=== PATIENT | male | born 1940 | race African-American/Black ===

== ENCOUNTER 2022-12-30 20:53 | Inpatient (IN) | payer MEDICARE ==
[2022-12-30 21:56] LABS: Actual Bicarbonate (HCO3v) 25 mEq/L (22-28); Analyzer IN Cardio ER; Base Excess -0.5 mEq/L (-2.0 to +3.0); Calcium, Ionized (venous) 1.22 mmol/L (1.16-1.32); Chloride (VBG) 115 mmol/L (98-106); Potassium (VBG) 4.33 mmol/L (3.70-5.30); pH (venous) 7.37 (7.32-7.43)
[2022-12-30 22:00] LABS: #Lymphocytes 1.9 thou/uL (1.20-3.40); #Monocytes 1.2 thou/uL (0.11-0.59); %Basophils 0.2 % (0.0-1.0); %Eosinophils 0.3 % (0.0-10.0); %Lymphocytes 13.6 % (21.0-51.0); %Monocytes 8.6 % (0.0-10.0); %Neutrophils 77.3 % (42.0-75.0); Hemoglobin 16.2 g/dL (14.0-18.0); Mean Corpuscular HGB CONC 33.1 g/dL (32.0-36.0); Mean Corpuscular Hemoglobin 27.1 pg (27.0-31.0); Mean Platelet Volume 8.9 fL (7.4-10.4); Platelet Count 296 10x3/uL (130-400); RBC Distribution Width 14.4 % (11.5-14.5); Red Blood Cell (RBC) Count 5.96 mill/uL (4.70-6.10); White Blood Cell (WBC) Count 14.2 10x3/uL (4.8-10.8)
[2022-12-30 22:17] LABS: SARS-CoV-2 NAA Rapid Test Not Detected (NotDetected)
[2022-12-30 22:22] LABS: ALT (SGPT) 25 U/L (8-55); AST (SGOT) 27 U/L (5-34); Albumin 4.3 g/dL (3.4-4.8); Alkaline Phosphatase 81 U/L (40-110); Anion Gap 19 mmol/L (10-20); BUN (Urea Nitrogen) 43 mg/dL (8.4-25.7); Bilirubin, Total 0.5 mg/dL (0.2-1.2); Calc. Creatinine Clearance 0 mL/min (70-130); Calcium 10.1 mg/dL (7.8-10.44); Carbon Dioxide 23 mmol/L (23-31); Chloride 115 mmol/L (98-107); Estimated GFR 25; Globulin 3.6 g/dL (2.4-3.5); Potassium 3.9 mmol/L (3.5-5.1); Protein, Total 7.9 g/dL (5.8-8.1)
[2022-12-30 22:24] LABS: Glucose 442 mg/dL (83-110); Sodium 153 mmol/L (136-145)
[2022-12-30 22:43] LABS: CKMB 6.3 ng/mL (0-6.6)
[2022-12-30] MEDS ORDERED: NS 0.9% w/ 20 MEQ KCL 1,000 ML ONE (22:46)
[2022-12-30] MEDS ORDERED: Sodium Chloride 0.9% 1,000 ML IV PRN ×2 (23:11)
[2022-12-30] MEDS ORDERED: D5 1/2 NS w/20 mEq KCL 1,000 ML IV PRN (23:11)
[2022-12-30] MEDS ORDERED: Dextrose 50% Abboject 50 ML SYRINGE SLOW IVP PRN (23:11)
[2022-12-30] MEDS ORDERED: NS 0.9% w/ 20 MEQ KCL 1,000 ML IV PRN ×2 (23:11)
[2022-12-30] MEDS ORDERED: Dextrose 5 %-0.45 % NaCl 1,000 ML IV PRN (23:11)
[2022-12-30] MEDS ORDERED: Electrolyte Replacement Protocol 1 EACH IVPB PRN (23:11)
[2022-12-30] MEDS ORDERED: Ondansetron PF 4 MG/2 ML Vial IVP PRN (23:13)
[2022-12-30] MEDS ORDERED: Acetaminophen 650 MG Suppository PR PRN (23:13)
[2022-12-30] MEDS ORDERED: Acetaminophen 325 MG TAB PO PRN (23:13)
[2022-12-30] MEDS ORDERED: Ondansetron ODT 4 MG TAB PO PRN (23:13)
[2022-12-30] MEDS ORDERED: HUMULIN R 100 UNITS in Sodium Chloride 0.9% 100 ML IVPB SCH (23:15)
[2022-12-31 00:24] VITALS: BMI 23.3
[2022-12-31 01:53] LABS: Anion Gap 18 mmol/L (10-20); BUN (Urea Nitrogen) 38 mg/dL (8.4-25.7); Calc. Creatinine Clearance 27 mL/min (70-130); Calcium 9.7 mg/dL (7.8-10.44); Carbon Dioxide 23 mmol/L (23-31); Chloride 123 mmol/L (98-107); Estimated GFR 31; Glucose 176 mg/dL (83-110); Potassium 4.1 mmol/L (3.5-5.1)
[2022-12-31 01:57] LABS: Sodium 160 mmol/L (136-145)
[2022-12-31 02:00] LABS: Troponin I 0.088 ng/mL (< 0.028)
[2022-12-31] MEDS ORDERED: Dextrose 5% w/ 20 mEq KCl 1,000 ML IV SCH (02:30)
[2022-12-31 04:29] LABS: #Basophils 0.1 thou/uL (0.0-0.2); #Lymphocytes 2.2 thou/uL (1.20-3.40); #Monocytes 1.6 thou/uL (0.11-0.59); #Neutrophils 11.2 thou/uL (1.40-6.50); %Basophils 0.4 % (0.0-1.0); %Eosinophils 0.2 % (0.0-10.0); %Lymphocytes 14.5 % (21.0-51.0); %Monocytes 10.3 % (0.0-10.0); %Neutrophils 74.6 % (42.0-75.0); Hemoglobin 15.5 g/dL (14.0-18.0); Mean Corpuscular HGB CONC 32.5 g/dL (32.0-36.0); Mean Corpuscular Hemoglobin 26.8 pg (27.0-31.0); Mean Corpuscular Volume 82.6 fl (78.0-98.0); Mean Platelet Volume 9.1 fL (7.4-10.4); Platelet Count 247 10x3/uL (130-400); RBC Distribution Width 14.5 % (11.5-14.5); Red Blood Cell (RBC) Count 5.79 mill/uL (4.70-6.10); White Blood Cell (WBC) Count 15.1 10x3/uL (4.8-10.8)
[2022-12-31 04:48] LABS: Troponin I 0.092 ng/mL (< 0.028)
[2022-12-31 04:50] LABS: Anion Gap 15 mmol/L (10-20); BUN (Urea Nitrogen) 34 mg/dL (8.4-25.7); Calc. Creatinine Clearance 33 mL/min (70-130); Calcium 9.7 mg/dL (7.8-10.44); Carbon Dioxide 22 mmol/L (23-31); Chloride 125 mmol/L (98-107); Estimated GFR 40; Glucose 101 mg/dL (83-110); Potassium 4.2 mmol/L (3.5-5.1)
[2022-12-31 04:55] LABS: Sodium 158 mmol/L (136-145)
[2022-12-31 07:03] LABS: Anion Gap 19 mmol/L (10-20); BUN (Urea Nitrogen) 32 mg/dL (8.4-25.7); Calc. Creatinine Clearance 32 mL/min (70-130); Calcium 9.1 mg/dL (7.8-10.44); Carbon Dioxide 16 mmol/L (23-31); Chloride 126 mmol/L (98-107); Estimated GFR 38; Glucose 205 mg/dL (83-110); Potassium 4.5 mmol/L (3.5-5.1)
[2022-12-31 07:16] LABS: Sodium 156 mmol/L (136-145)
[2022-12-31] MEDS ORDERED: Dextrose 50% Abboject 50 ML SYRINGE IVP PRN (09:30)
[2022-12-31] MEDS ORDERED: Dextrose 5% in Water 1,000 ML IV PRN ×2 (09:30→15:48)
[2022-12-31] MEDS: Sodium Chloride 0.45% 1,000 ML IV SCH ×2 (09:37→17:54)
[2022-12-31 10:05] LABS: Anion Gap 16 mmol/L (10-20); BUN (Urea Nitrogen) 30 mg/dL (8.4-25.7); Calc. Creatinine Clearance 34 mL/min (70-130); Calcium 9.6 mg/dL (7.8-10.44); Carbon Dioxide 21 mmol/L (23-31); Chloride 123 mmol/L (98-107); Estimated GFR 42; Glucose 204 mg/dL (83-110); Potassium 4.1 mmol/L (3.5-5.1)
[2022-12-31 10:27] LABS: Sodium 156 mmol/L (136-145)
[2022-12-31 14:29] LABS: Anion Gap 16 mmol/L (10-20); BUN (Urea Nitrogen) 27 mg/dL (8.4-25.7); Calc. Creatinine Clearance 38 mL/min (70-130); Calcium 9.2 mg/dL (7.8-10.44); Carbon Dioxide 20 mmol/L (23-31); Chloride 123 mmol/L (98-107); Estimated GFR 47; Glucose 187 mg/dL (83-110); Potassium 4.3 mmol/L (3.5-5.1)
[2022-12-31 14:48] LABS: Sodium 155 mmol/L (136-145)
[2022-12-31 16:28] LABS: Sodium 157.3 mmol/L (133-146)
[2022-12-31] MEDS: HumaLOG 300 UNITS/3 ML VIAL SC PRN (17:54)
[2022-12-31 19:50] LABS: Bilirubin Negative (Negative); Blood, Urine 3+ (Negative); Clarity Clear (Clear); Glucose, Urine (Dipstick) Greater than 1000 mg/dL (Negative); Ketone, Urine 10 mg/dL (Negative); Leukocyte Negative Leu/uL (Negative); Nitrite Negative (Negative); Protein, Urine (Dipstick) 20 mg/dL (Neg-Trace); RBC/HPF 0-3 HPF (0-3); Specific Gravity, Urine 1.014 (1.002-1.036); Squamous Epithelial 0-3 HPF (0-3); Urobilinogen Normal mg/dL (Less than 2); WBC/HPF 0-3 HPF (0-3)
[2022-12-31 19:51] LABS: Bacteria/HPF 1+ HPF (None Seen)
[2022-12-31] MEDS ORDERED: Insulin Glargine 30 UNITS/0.3 ML VIAL SC SCH (21:00)
[2022-12-31] MEDS: Atorvastatin Calcium 20 MG TAB PO SCH (21:20)
[2023-01-01] MEDS: Sodium Chloride 0.45% 1,000 ML IV SCH ×3 (00:58→17:15)
[2023-01-01] MEDS: HumaLOG 300 UNITS/3 ML VIAL SC PRN ×3 (07:30→17:14)
[2023-01-01] MEDS ORDERED: Glimepiride 1 MG TAB PO SCH (08:00)
[2023-01-01 09:04] LABS: #Basophils 0.1 thou/uL (0.0-0.2); #Lymphocytes 2.4 thou/uL (1.20-3.40); #Monocytes 0.6 thou/uL (0.11-0.59); #Neutrophils 8.3 thou/uL (1.40-6.50); %Basophils 0.6 % (0.0-1.0); %Eosinophils 0.3 % (0.0-10.0); %Lymphocytes 20.9 % (21.0-51.0); %Monocytes 5.3 % (0.0-10.0); Hemoglobin 15.9 g/dL (14.0-18.0); Mean Corpuscular HGB CONC 31.5 g/dL (32.0-36.0); Mean Corpuscular Hemoglobin 26.6 pg (27.0-31.0); Mean Corpuscular Volume 84.5 fl (78.0-98.0); Platelet Count 225 10x3/uL (130-400); RBC Distribution Width 14.7 % (11.5-14.5); Red Blood Cell (RBC) Count 5.96 mill/uL (4.70-6.10); White Blood Cell (WBC) Count 11.4 10x3/uL (4.8-10.8)
[2023-01-01 09:19] LABS: Anion Gap 18 mmol/L (10-20); BUN (Urea Nitrogen) 22 mg/dL (8.4-25.7); Calc. Creatinine Clearance 40 mL/min (70-130); Calcium 8.7 mg/dL (7.8-10.44); Carbon Dioxide 17 mmol/L (23-31); Chloride 118 mmol/L (98-107); Estimated GFR 52; Glucose 266 mg/dL (83-110); Potassium 3.9 mmol/L (3.5-5.1); Sodium 149 mmol/L (136-145)
[2023-01-01 09:23] LABS: ALT (SGPT) 44 U/L (8-55); AST (SGOT) 84 U/L (5-34); Albumin 3.2 g/dL (3.4-4.8); Alkaline Phosphatase 65 U/L (40-110); Anion Gap 19 mmol/L (10-20); BUN (Urea Nitrogen) 21 mg/dL (8.4-25.7); Bilirubin, Total 0.8 mg/dL (0.2-1.2); Calc. Creatinine Clearance 40 mL/min (70-130); Calcium 9.1 mg/dL (7.8-10.44); Carbon Dioxide 16 mmol/L (23-31); Chloride 118 mmol/L (98-107); Estimated GFR 52; Globulin 3.3 g/dL (2.4-3.5); Glucose 265 mg/dL (83-110); Potassium 3.8 mmol/L (3.5-5.1); Protein, Total 6.5 g/dL (5.8-8.1); Sodium 149 mmol/L (136-145)
[2023-01-01] MEDS: Insulin Glargine 30 UNITS/0.3 ML VIAL SC SCH ×2 (10:00→21:05)
[2023-01-01] MEDS: Amlodipine 10 MG TAB PO SCH (10:00)
[2023-01-01] MEDS: Aspirin Chewable 81 MG TAB PO SCH (10:00)
[2023-01-01] MEDS: Atorvastatin Calcium 20 MG TAB PO SCH (21:04)
[2023-01-02] MEDS: Sodium Chloride 0.45% 1,000 ML IV SCH ×2 (01:17→08:34)
[2023-01-02 06:24] LABS: #Eosinphils 0.1 thou/uL (0.0-0.7); #Lymphocytes 2.3 thou/uL (1.20-3.40); #Monocytes 0.8 thou/uL (0.11-0.59); #Neutrophils 3.8 thou/uL (1.40-6.50); %Basophils 0.7 % (0.0-1.0); %Eosinophils 0.8 % (0.0-10.0); %Lymphocytes 33.6 % (21.0-51.0); %Monocytes 10.7 % (0.0-10.0); %Neutrophils 54.2 % (42.0-75.0); Hemoglobin 15.3 g/dL (14.0-18.0); Mean Corpuscular HGB CONC 32.6 g/dL (32.0-36.0); Mean Corpuscular Hemoglobin 27.2 pg (27.0-31.0); Mean Corpuscular Volume 83.4 fl (78.0-98.0); Platelet Count 167 10x3/uL (130-400); RBC Distribution Width 14.2 % (11.5-14.5); Red Blood Cell (RBC) Count 5.62 mill/uL (4.70-6.10)
[2023-01-02] MEDS: HumaLOG 300 UNITS/3 ML VIAL SC PRN ×2 (06:54→12:24)
[2023-01-02 07:00] LABS: ALT (SGPT) 36 U/L (8-55); AST (SGOT) 56 U/L (5-34); Albumin 2.8 g/dL (3.4-4.8); Alkaline Phosphatase 59 U/L (40-110); Anion Gap 13 mmol/L (10-20); BUN (Urea Nitrogen) 15 mg/dL (8.4-25.7); Bilirubin, Total 0.8 mg/dL (0.2-1.2); Calc. Creatinine Clearance 54 mL/min (70-130); Calcium 8.5 mg/dL (7.8-10.44); Carbon Dioxide 20 mmol/L (23-31); Chloride 114 mmol/L (98-107); Estimated GFR 73; Globulin 2.8 g/dL (2.4-3.5); Glucose 154 mg/dL (83-110); Potassium 3.5 mmol/L (3.5-5.1); Protein, Total 5.6 g/dL (5.8-8.1); Sodium 143 mmol/L (136-145)
[2023-01-02] MEDS ORDERED: Glimepiride 4 MG TAB PO SCH (07:30)
[2023-01-02] MEDS ORDERED: Potassium Chloride 20 MEQ TAB PO SCH (08:00)
[2023-01-02] MEDS: Aspirin Chewable 81 MG TAB PO SCH (08:33)
[2023-01-02] MEDS: Insulin Glargine 30 UNITS/0.3 ML VIAL SC SCH (08:33)
[2023-01-02] MEDS: Amlodipine 10 MG TAB PO SCH (08:34)
[2023-01-02 11:43] VITALS: BP 157/87; TEMP 98.6
== END 2023-01-02 15:00 | disposition home health service (06) | DRG 638 ==
LOC: ERS 20:53 → IMCU/EMU 22:19 → SJJU 12-31 22:42
PROVIDERS: ADMIT Student in an Organized Health Care Education/Training Program; ATTEND Internal Medicine
DX: E11.10 Type 2 diabetes mellitus with ketoacidosis without coma (principal); E87.0 Hyperosmolality and hypernatremia; N17.9 Acute kidney failure, unspecified; E78.5 Hyperlipidemia, unspecified; E78.00 Pure hypercholesterolemia, unspecified; E86.0 Dehydration; N18.30 Chronic kidney disease, stage 3 unspecified; D63.1 Anemia in chronic kidney disease; Z20.822 Contact with and (suspected) exposure to COVID-19; Z79.4 Long term (current) use of insulin; Z79.82 Long term (current) use of aspirin; Z79.899 Other long term (current) drug therapy
CPT/HCPCS: 36415; 36416; 80048; 80053; 81001; 82553; 82805; 84484; 85025; 93005; 96365; 96366; J1650; J1815; J3480; U0002

== ENCOUNTER 2023-08-13 18:39 | Observation (INO) | payer MEDICARE ==
[2023-08-13 20:00] LABS: #Basophils 0.1 thou/uL (0.0-0.2); #Eosinphils 0.1 thou/uL (0.0-0.7); #Monocytes 0.6 thou/uL (0.11-0.59); #Neutrophils 4.3 thou/uL (1.40-6.50); %Basophils 0.7 % (0.0-1.0); %Eosinophils 0.7 % (0.0-10.0); %Lymphocytes 32.4 % (21.0-51.0); %Monocytes 7.7 % (0.0-10.0); %Neutrophils 58.4 % (42.0-75.0); Mean Corpuscular HGB CONC 33.3 g/dL (32.0-36.0); Mean Corpuscular Hemoglobin 25.3 pg (27.0-31.0); Mean Corpuscular Volume 75.8 fl (78.0-98.0); Mean Platelet Volume 10.4 fL (7.4-10.4); Platelet Count 264 10x3/uL (130-400); RBC Distribution Width 16.5 % (11.5-14.5); Red Blood Cell (RBC) Count 5.54 mill/uL (4.70-6.10); White Blood Cell (WBC) Count 7.4 10x3/uL (4.8-10.8)
[2023-08-13 20:02] LABS: Bilirubin Negative (Negative); Blood, Urine Negative (Negative); Glucose, Urine (Dipstick) >=1000 mg/dL (Negative); Ketone, Urine Negative (Negative); Leukocyte Negative (Negative); Nitrite Negative (Negative); Protein, Urine (Dipstick) Negative (Neg-Trace); Specific Gravity, Urine 1.015 (1.005-1.030); Urobilinogen 0.2 mg/dL (Less than 2); pH, Urine 5.5 (5.0-9.0)
[2023-08-13 20:04] LABS: Clarity Clear (Clear)
[2023-08-13 20:12] LABS: CAUTI Indications for Culture < 2yrs of age; RBC/HPF 0-3 HPF (0-3); Squamous Epithelial 0-3 HPF (0-3); WBC/HPF 0-3 HPF (0-3)
[2023-08-13 20:13] LABS: Bacteria/HPF None Seen HPF (None Seen)
[2023-08-13 20:15] LABS: Urine Culture Reflex Yes Yes
[2023-08-13 20:31] LABS: Troponin I 0.027 ng/mL (< 0.028)
[2023-08-13 22:13] LABS: Albumin 3.5 g/dL (3.4-4.8)
[2023-08-13 22:14] LABS: Chloride 100 mmol/L (98-107); Potassium 3.7 mmol/L (3.5-5.1)
[2023-08-13 22:15] LABS: Calcium 8.5 mg/dL (7.8-10.44); Sodium 128 mmol/L (136-145)
[2023-08-13 22:16] LABS: Globulin 2.9 g/dL (2.4-3.5); Protein, Total 6.4 g/dL (5.8-8.1)
[2023-08-13 22:17] LABS: Anion Gap 15 mmol/L (10-20); Bilirubin, Total 0.3 mg/dL (0.2-1.2); Carbon Dioxide 17 mmol/L (23-31)
[2023-08-13 22:19] LABS: Alkaline Phosphatase 69 U/L (40-110); Calc. Creatinine Clearance 0 mL/min (70-130); Estimated GFR 30
[2023-08-13 22:20] LABS: BUN (Urea Nitrogen) 36 mg/dL (8.4-25.7)
[2023-08-13 22:21] LABS: ALT (SGPT) 18 U/L (8-55); AST (SGOT) 26 U/L (5-34); Magnesium 2.1 mg/dL (1.6-2.6)
[2023-08-13 22:23] LABS: Glucose 434 mg/dL (83-110)
[2023-08-13] MEDS ORDERED: Insulin Regular 300 UNITS/3 ML VIAL ONE (23:17)
[2023-08-14] MEDS ORDERED: Ondansetron ODT 4 MG TAB PO PRN (00:04)
[2023-08-14] MEDS ORDERED: Acetaminophen 325 MG TAB PO PRN (00:04)
[2023-08-14] MEDS ORDERED: Glucagon 1 MG/ML KIT IM PRN (00:05)
[2023-08-14] MEDS ORDERED: Dextrose 50% Abboject 50 ML SYRINGE SLOW IVP PRN (00:05)
[2023-08-14] MEDS ORDERED: Dextrose 5% in Water 1,000 ML IV PRN (00:05)
[2023-08-14] MEDS ORDERED: HumaLOG 300 UNITS/3 ML VIAL SC PRN ×2 (00:05)
[2023-08-14] MEDS ORDERED: Lactated Ringer's 1,000 ML IV SCH (00:15)
[2023-08-14 00:26] VITALS: BMI 24.3
[2023-08-14 04:06] LABS: Troponin I 0.024 ng/mL (< 0.028)
[2023-08-14 07:13] LABS: Troponin I 0.034 ng/mL (< 0.028)
[2023-08-14 07:16] LABS: Anion Gap 15 mmol/L (10-20); BUN (Urea Nitrogen) 33 mg/dL (8.4-25.7); Calc. Creatinine Clearance 36 mL/min (70-130); Calcium 9.1 mg/dL (7.8-10.44); Carbon Dioxide 21 mmol/L (23-31); Chloride 104 mmol/L (98-107); Estimated GFR 42; Glucose 131 mg/dL (83-110); Potassium 3.3 mmol/L (3.5-5.1); Sodium 137 mmol/L (136-145)
[2023-08-14] MEDS ORDERED: Glimepiride 1 MG TAB PO SCH (08:00)
[2023-08-14 08:04] VITALS: BP 127/75; TEMP 98.5
[2023-08-14] MEDS ORDERED: Lisinopril/Hydrochlorothiazide 20/25 mg Tablet PO SCH (09:00)
[2023-08-14] MEDS ORDERED: Aspirin Chewable 81 MG TAB PO SCH (09:00)
[2023-08-14] MEDS ORDERED: Famotidine 20 MG TAB PO SCH (09:00)
[2023-08-14] MEDS ORDERED: Amlodipine 10 MG TAB PO SCH (09:00)
[2023-08-14] MEDS ORDERED: Insulin Glargine 30 UNITS/0.3 ML VIAL SC SCH (09:00)
[2023-08-14] MEDS ORDERED: Potassium Chloride 20 MEQ TAB PO SCH (10:00)
[2023-08-14] MEDS ORDERED: Atorvastatin Calcium 20 MG TAB PO SCH (21:00)
[2023-08-17] MEDS ORDERED: FLU VACC QS2023(65UP)/MF59C/PF 60 MCG/0.5 ML SYRINGE IM ONE (09:00)
== END 2023-08-14 12:17 | disposition home or self-care (01) ==
LOC: ERS 18:39 → T4-A 23:25
PROVIDERS: ADMIT Student in an Organized Health Care Education/Training Program; ATTEND Internal Medicine
DX: E11.65 Type 2 diabetes mellitus with hyperglycemia (principal); N17.9 Acute kidney failure, unspecified; I10 Essential (primary) hypertension; E78.5 Hyperlipidemia, unspecified; E87.1 Hypo-osmolality and hyponatremia; Z79.82 Long term (current) use of aspirin; Z79.899 Other long term (current) drug therapy; Z79.84 Long term (current) use of oral hypoglycemic drugs; Z79.4 Long term (current) use of insulin
CPT/HCPCS: 80048; 80053; 81001; 82962 ×2; 83735; 84484 ×3; 85025; 87086; 93005; 96374; 99285; G0378 ×2; 36415; 36416; J1815; J7120